=== PATIENT | male | born 1970 | race Caucasian/White ===

== ENCOUNTER 2017-08-06 10:47 | Emergency (ER) | payer BC, OTHER ==
[2017-08-06 11:55] LABS: ABS Basophils 0 10^3/ul (0-0.2); ABS Eosinophils 0.2 10^3/ul (0-0.6); ABS Lymphocytes 1.2 10^3/ul (1.0-4.8); ABS Monocytes 0.4 10^3/ul (0-0.8); ABS Neutrophils 5.4 10^3/ul (1.5-7.7); ABS Nucleated RBC 0 10^3/ul; Eosinophil % 2.1 % (0-6); Hematocrit 46 % (42-52); Hemoglobin 15.6 g/dl (14.0-18.0); Lymphocyte % 17.1 % (25-47); Mean Corpuscular HGB Conc 34 g/dl (31-36); Mean Corpuscular Hemoglobin 28 pg (27-31); Mean Corpuscular Volume 83 fL (80-94); Mean Platelet Volume 8 um3 (7.4-10.4); Nucleated Red Blood Cells % 0.1; Platelet Count 250 10^3/ul (150-450); Red Blood Count 5.53 10^6/ul (4.0-5.4); Red Cell Distribution Width 14 % (10.5-15); White Blood Count 7.2 10^3/ul (3.5-10.8)
[2017-08-06 12:10] LABS: EGFR Non-African American 73.3 (>60)
[2017-08-06] MEDS ORDERED: hydrALAZINE TAB* 25 MG PO ONE (13:11)
[2017-08-06 14:24] VITALS: BP 169/107
--- NOTE | 2017-08-15 16:46 | ED ---
Chris Schwartz Natalie, scribed for Markus Benavides MD on 08/06/17 at 1134 . Psychiatric Complaint - HPI Summary HPI Summary: The pt is a 47 y/o M presenting to the [facility] ED c/o possible SI starting last night s/p arguing with . The pt and his having marital issues last night. This morning, the pt left a letter to his that started to sound a like a suicide note. The pt went to work, and he and his continued to fight over text, exchanging messages such as why shouldnt I just kill myself. His was worried so she called the police. He feels alright in the ED. Pt denies SI/HI. - History Of Current Complaint Chief Complaint: EDMentalHealth Hx Obtained From: Patient Onset/Duration: Lasting Hours, Resolved Severity Initially: Moderate Severity Currently: None Character: Frustrated Aggravating Factor(s): Nothing Alleviating Factor(s): Nothing - Allergies/Home Medications Allergies/Adverse Reactions: Allergies Allergy/AdvReac Type Severity Reaction Status Date / Time No Known Allergies Allergy Verified 08/07/13 12:28 PMH/Surg Hx/FS Hx/Imm Hx Previously Healthy: Yes Endocrine/Hematology History: Denies: Hx Diabetes, Hx Thyroid Disease Cardiovascular History: Denies: Hx Hypertension Respiratory History: Denies: Hx Asthma, Hx Chronic Obstructive Pulmonary Disease (COPD) GI History: Denies: Hx Ulcer Infectious Disease History: No Infectious Disease History: Denies: Hx Clostridium Difficile, Hx Hepatitis, Hx Human Immunodeficiency Virus (HIV), Hx of Known/Suspected MRSA, Hx Shingles, Hx Tuberculosis, Traveled Outside the [place] in Last 30 Days - Family History Known Family History: Positive: Hypertension Negative: Cardiac Disease, Diabetes - Social History Substance Use Type: Reports: None Review of Systems Negative: Fever Negative: Other - SI, HI All Other Systems Reviewed And Are Negative: Yes Physical Exam - Summary Physical Exam Summary: Appearance: Well-appearing, Well-nourished Skin: Warm, dry Eyes: Normal, Extraocular movements intact, PERRL ENT: Normal, Mucus membranes moist Neck: Supple, nontender Respiratory: Lung sounds clear to auscultation Cardiovascular: Normal Abdomen/GI: Soft, nontender, no distension Musculoskeletal: Normal, Strength/ROM Intact, Normal strength and sensation in all upper and lower extremities Neurological: Normal, A&Ox3 Psychiatric: Normal Triage Information Reviewed: Yes Vital Signs On Initial Exam: Initial Vitals Temp Pulse Resp BP Pulse Ox 99.0 F 86 18 185/100 100 08/06/17 10:52 08/06/17 10:52 08/06/17 10:52 08/06/17 10:52 08/06/17 10:52 Vital Signs Reviewed: Yes Diagnostics - Vital Signs Vital Signs Temp Pulse Resp BP Pulse Ox 08/06/17 10:52 99.0 F 86 18 185/100 100 - Laboratory Lab Results: Lab Results 08/06/17 08/06/17 Range/Units 11:43 11:43 WBC 7.2 (3.5-10.8) 10^3/ul RBC 5.53 H (4.0-5.4) 10^6/ul Hgb 15.6 (14.0-18.0) g/dl Hct 46 (42-52) % MCV 83 (80-94) fL MCH 28 (27-31) pg MCHC 34 (31-36) g/dl RDW 14 (10.5-15) % Plt Count 250 (150-450) 10^3/ul MPV 8 (7.4-10.4) um3 Neut % (Auto) 74.8 (38-83) % Lymph % (Auto) 17.1 L (25-47) % [place] % (Auto) 5.3 (1-9) % Eos % (Auto) 2.1 (0-6) % Baso % (Auto) 0.7 (0-2) % Absolute Neuts (auto) 5.4 (1.5-7.7) 10^3/ul Absolute Lymphs (auto) 1.2 (1.0-4.8) 10^3/ul Absolute Monos (auto) 0.4 (0-0.8) 10^3/ul Absolute Eos (auto) 0.2 (0-0.6) 10^3/ul Absolute Basos (auto) 0 (0-0.2) 10^3/ul Absolute Nucleated RBC 0 10^3/ul Nucleated RBC % 0.1 Sodium 134 (133-145) mmol/L Potassium 4.2 (3.5-5.0) mmol/L Chloride 102 (101-111) mmol/L Carbon Dioxide 23 (22-32) mmol/L Anion Gap 9 (2-11) mmol/L BUN 22 (6-24) mg/dL Creatinine 1.08 (0.67-1.17) mg/dL Est GFR ( Amer) 94.3 (>60) Est GFR (Non-Af Amer) 73.3 (>60) BUN/Creatinine Ratio 20.4 H (8-20) Glucose 125 H (70-100) mg/dL Calcium 9.1 (8.6-10.3) mg/dL Total Bilirubin 0.60 (0.2-1.0) mg/dL AST 17 (13-39) U/L ALT 25 (7-52) U/L Alkaline Phosphatase 53 (34-104) U/L Total Protein 7.3 (6.4-8.9) g/dL Albumin 4.5 (3.2-5.2) g/dL Globulin 2.8 (2-4) g/dL Albumin/Globulin Ratio 1.6 (1-3) TSH 1.27 (0.34-5.60) mcIU/mL Salicylates < 2.50 (<30) mg/dL Acetaminophen < 15 mcg/mL Serum Alcohol < 10 (<10) mg/dL Result Diagrams: 08/06/17 11:43 08/06/17 11:43 Lab Statement: Any lab studies that have been ordered have been reviewed, and results considered in the medical decision making process. Course/Dx - Course Assessment/Plan: MHE appreciated, pt deemed NOT to be a danger to himself or others at this time. Discharged with instructions for outpatient f/u. - Differential Dx/Clinical Impression Provider Diagnosis: Suicidal ideation Discharge - Discharge Plan Condition: Stable Disposition: HOME Referrals: No Primary Care Phys,NOPCP [Primary Care Provider] - The documentation as recorded by the Chris deluna Natalie accurately reflects the service I personally performed and the decisions made by me, Markus Benavides MD.
== END 2017-08-06 16:30 | disposition home or self-care (01) ==
LOC: ED 10:47
DX: R45.851 Suicidal ideations (principal)
CPT/HCPCS: 36415; 80053; 80320; 80329; 84443; 85025; 99283; A9270-GY; G0480